=== PATIENT | male | born 1970 | race Caucasian/White ===

== ENCOUNTER 2016-12-26 06:12 | Emergency (ER) | payer MEDICAID ==
[~2016-12-26] VITALS: Ht 170.2 cm; Wt 101.6 kg
[2016-12-26 06:12] VITALS: BP_SYST 156
[2016-12-26] MEDS ORDERED: NACL 0.9% 1,000 ML IV ONE (06:20)
[2016-12-26] MEDS ORDERED: KETOROLAC TROMETHAMINE 30 MG VIAL IVP ONE (06:30)
[2016-12-26] MEDS ORDERED: ONDANSETRON HCL 4 MG/2 ML VIAL IVP ONE (06:30)
[2016-12-26 06:56] LABS: BASOPHILS # (AUTO) 0.1 K/uL (0.0-0.2); BASOPHILS % (AUTO) 0.8 % (0.0-2.0); EOSINOPHILS # (AUTO) 0.3 K/uL (0.0-0.4); EOSINOPHILS % (AUTO) 4.1 % (0.0-4.0); HEMATOCRIT 44.1 % (36-54); HEMOGLOBIN 14.3 g/dL (14.0-18.0); LYMPHOCYTES # (AUTO) 3.5 K/uL (1.0-5.5); LYMPHOCYTES % (AUTO) 49.6 % (20.5-51.5); MEAN CORPUSCULAR HEMOGLOBIN 25 pg (27-31); MEAN CORPUSCULAR HGB CONC 33 % (32-36); MEAN CORPUSCULAR VOLUME 78 fL (79.0-98.0); MONOCYTES # (AUTO) 0.6 K/uL (0.0-1.0); MONOCYTES % (AUTO) 8.5 % (1.7-9.3); NEUTROPHILS # (AUTO) 2.6 K/uL (1.8-7.7); PLATELET COUNT (AUTO) 340 K/uL (130-430); RED BLOOD CELL COUNT(AUTO) 5.69 MIL/uL (4.2-6.2); RED CELL DISTRIBUTION WIDTH 13.2 % (9.0-15.0); WHITE BLOOD COUNT (AUTO) 7.1 K/uL (4.8-10.8)
[2016-12-26 06:57] LABS: BILIRUBIN,URINE NEGATIVE (NEGATIVE); BLOOD, URINE 3+ (NEGATIVE); CLARITY/URINE CLEAR (CLEAR); COLOR,URINE YELLOW (YELLOW); GLUCOSE,URINE NEGATIVE (NEGATIVE); KETONES,URINE NEGATIVE (NEGATIVE); LEUKOCYTE ESTERASE ,URINE NEGATIVE (NEGATIVE); NITRITE, URINE NEGATIVE (NEGATIVE); PROTEIN URINE NEGATIVE (NEGATIVE); UROBILINOGEN,URINE 0.2 (0.2-1.0)
[2016-12-26 07:09] LABS: CALCIUM 8.7 mg/dL (8.4-11.0); CREATININE 1.12 mg/dL (0.55-1.30); POTASSIUM 4.1 mmol/L (3.5-5.1)
[2016-12-26 07:14] LABS: ALBUMIN 3.9 g/dL (3.4-4.8); TOTAL BILIRUBIN 0.2 mg/dL (0.0-1.0); TOTAL PROTEIN, SERUM 8.1 g/dL (6.4-8.3)
[2016-12-26 07:34] VITALS: BP_SYST 148
[2016-12-26 08:05] LABS: RBC,URINE 20-50 /HPF (0-3); WBC,URINE NONE SEEN /HPF (0-3)
[2016-12-26 08:06] LABS: BACTERIA,URINE FEW /HPF (None Seen); MUCUS,URINE None Seen /LPF (None Seen)
== END 2016-12-26 07:34 | disposition home or self-care (01) ==
LOC: SED 06:12
DX: N23 Unspecified renal colic (principal); I25.2 Old myocardial infarction; E78.00 Pure hypercholesterolemia, unspecified; E11.9 Type 2 diabetes mellitus without complications; Z95.9 Presence of cardiac and vascular implant and graft, unspecified; Z87.442 Personal history of urinary calculi
CPT/HCPCS: 36415; 74176; 80053; 81000; 85025; 96361; 96374; 96375; 99285; J1885; J2405; J7030

== ENCOUNTER 2018-01-18 02:21 | Emergency (ER) | payer MEDICAID ==
[~2018-01-18] VITALS: Ht 170.2 cm; Wt 101.6 kg
[2018-01-18 02:38] VITALS: BP_SYST 126
--- NOTE | 2018-01-18 02:38 | NUR ---
Patient AAOx4, ambulatory. Patient presents with pain to left forearm after he "slept on his arm wrong" this morning; patient states pain increases when attempting to rotate his wrist or when attempting to flex and extend his left fingers. Patient states sensation is present to left hand; cap refill is brisk and <2 seconds. No deformity noted. Patient denies any other complaints.
--- NOTE | 2018-01-18 02:38 | NUR ---
Patient to ER bed 6 to gown for evaluation. Side rails up.
--- NOTE | 2018-01-18 03:03 | NUR ---
ER Dr. Chiang at bedside examining patient.
[2018-01-18] MEDS ORDERED: KETOROLAC TROMETHAMINE 30 MG VIAL IM ONE (03:15)
--- NOTE | 2018-01-18 04:31 | NUR ---
Patient is calmly resting in ER bed, no signs of distress noted. Vital signs are within therapeutic range.
--- NOTE | 2018-01-18 04:50 | NUR ---
Wrist splint applied to left wrist. Strong pulse noted. Capillary refill <2 seconds. Patient has ability to move non-splinted digits. Has sensation present to affected site. Skin color within normal limits. Applied for pain management control.
[2018-01-18 05:00] VITALS: BP_SYST 124
--- NOTE | 2018-01-18 05:00 | NUR ---
Patient given written and verbal discharge instructions and verbalizes understanding. ER MD discussed with patient the results and treatment provided. Patient in stable condition. ID arm band removed. Rx of naprosyn given. Patient educated on pain management and to follow up with PMD. Pain Scale 0/10. Opportunity for questions provided and answered. Medication side effect fact sheet provided.
== END 2018-01-18 05:00 | disposition home or self-care (01) ==
LOC: SED 02:21
DX: S63.502A Unspecified sprain of left wrist, initial encounter (principal); E78.00 Pure hypercholesterolemia, unspecified; I25.2 Old myocardial infarction; E11.9 Type 2 diabetes mellitus without complications; X58.XXXA Exposure to other specified factors, initial encounter; Y93.89 Activity, other specified; Y92.89 Other specified places as the place of occurrence of the external cause; Y99.8 Other external cause status
CPT/HCPCS: 29125; 73110; 96372; 99284; J1885

== ENCOUNTER → 2019-07-09 | Emergency (ER) | payer MEDICAID ==
[~2019-07-09] VITALS: Ht 170.2 cm; Wt 101.6 kg
[2019-07-09 01:37] VITALS: BP_SYST 134
--- NOTE | 2019-07-09 01:45 | NUR ---
Pt to ER waiting room in stable condition. Pt ambulates with crutches he brought from home.
--- NOTE | 2019-07-09 02:54 | NUR ---
Pt to hallway bed 1
--- NOTE | 2019-07-09 03:46 | NUR ---
Pt left ER on crutches. Told him he was next, but he wanted to leave anyway. LWBS at this time.
== END | disposition still patient (30) ==
LOC: SED 00:38
DX: M25.562 Pain in left knee (principal); Z53.21 Procedure and treatment not carried out due to patient leaving prior to being seen by health care provider

== ENCOUNTER 2020-09-06 13:37 | Emergency (ER) | payer MEDICAID ==
[~2020-09-06] VITALS: Ht 172.7 cm; Wt 108.9 kg
[2020-09-06 13:42] VITALS: BP_SYST 137
[2020-09-06] MEDS ORDERED: LIDOCAINE 1%, 20 ML MDV 0 ML ONE (14:37)
[2020-09-06] MEDS ORDERED: DIPH-TET-PERTUS Vaccine 0.5 ML VIAL (ADACEL) I.M. ONE (14:45)
[2020-09-06] MEDS ORDERED: LIDOCAINE 2%, 20 ML MDV INJ ONE (14:45)
[2020-09-06] MEDS ORDERED: BACITRACIN 1 GM OINT TP ONE (14:45)
[2020-09-06] MEDS ORDERED: SULFAMETHOXAZOLE/TRIMETHOPR DS 1 TABLET PO ONE (16:30)
[2020-09-06] MEDS ORDERED: SULF1TAB48 PO (16:42)
[2020-09-06 17:27] VITALS: BP_SYST 137
== END 2020-09-06 17:29 | disposition home or self-care (01) ==
LOC: SED 14:04
DX: S61.012A Laceration without foreign body of left thumb without damage to nail, initial encounter (principal); E78.00 Pure hypercholesterolemia, unspecified; Z87.442 Personal history of urinary calculi; W25.XXXA Contact with sharp glass, initial encounter; Y93.89 Activity, other specified; Y92.89 Other specified places as the place of occurrence of the external cause; Y99.8 Other external cause status
CPT/HCPCS: 12002; 73140; 99283; J2001; 90715

== ENCOUNTER 2020-09-29 19:56 | Emergency (ER) | payer MEDICAID ==
[~2020-09-29] VITALS: Ht 170.2 cm; Wt 112.0 kg
[~2020-09-29 19:56] MED LIST: SULF1TAB48 PO
[2020-09-29 19:57] VITALS: BP_SYST 112
[2020-09-29] MEDS ORDERED: ASPIRIN 81 MG TAB.CHEW PO ONE (21:00)
[2020-09-29] MEDS ORDERED: NITROGLYCERIN LINGUAL 400 mCg/SPRAY SL PRN (21:00)
[2020-09-29 21:21] LABS: BASOPHILS % (AUTO) 0.6 % (0.0-2.0); EOSINOPHILS % (AUTO) 0.9 % (0.0-4.0); HEMATOCRIT 42.3 % (36-54); HEMOGLOBIN 14.1 g/dL (14.0-18.0); LYMPHOCYTES # (AUTO) 1.7 K/uL (1.0-5.5); LYMPHOCYTES % (AUTO) 29.2 % (20.5-51.5); MEAN CORPUSCULAR HEMOGLOBIN 26 pg (27-31); MEAN CORPUSCULAR HGB CONC 33 % (32-36); MEAN CORPUSCULAR VOLUME 78 fL (79.0-98.0); MONOCYTES # (AUTO) 0.6 K/uL (0.0-1.0); MONOCYTES % (AUTO) 10.7 % (1.7-9.3); NEUTROPHILS # (AUTO) 3.3 K/uL (1.8-7.7); NEUTROPHILS % (AUTO) 58.6 % (40.0-70.0); PLATELET COUNT (AUTO) 314 K/uL (130-430); RED BLOOD CELL COUNT(AUTO) 5.45 MIL/uL (4.2-6.2); WHITE BLOOD COUNT (AUTO) 5.7 K/uL (4.8-10.8)
[2020-09-29 21:29] LABS: CALCIUM 8.7 mg/dL (8.4-11.0); CREATININE 1.13 mg/dL (0.55-1.30); POTASSIUM 3.9 mmol/L (3.5-5.1)
[2020-09-29 21:33] LABS: PROTHROMBIN TIME 9.9 SECS (9.5-12.5)
[2020-09-29 21:35] LABS: ALBUMIN 3.7 g/dL (3.4-4.8)
[2020-09-29 22:07] LABS: TOTAL BILIRUBIN 0.6 mg/dL (0.0-1.0)
[2020-09-29 23:15] VITALS: BP_SYST 112
== END 2020-09-29 23:15 | disposition home or self-care (01) ==
LOC: SED 19:56
DX: R07.89 Other chest pain (principal); R00.0 Tachycardia, unspecified; E78.00 Pure hypercholesterolemia, unspecified; E78.5 Hyperlipidemia, unspecified
CPT/HCPCS: 36415; 71045; 80053; 83880; 84484; 85025; 85610-TC; 85730-TC; 93005; 99285

== ENCOUNTER 2021-03-02 20:17 | Emergency (ER) | payer MEDICAID ==
[~2021-03-02] VITALS: Ht 170.2 cm; Wt 108.9 kg
[2021-03-02 20:39] VITALS: BP_SYST 145
[2021-03-02] MEDS ORDERED: ATOR10TA68 PO (20:48)
--- NOTE | 2021-03-02 21:40 | NUR ---
Patient to ER bed 01 to gown for evaluation. Side rails up. Report given to PROSPER Carnes
--- NOTE | 2021-03-02 21:49 | NUR ---
PT CAME TO ER FOR COMPLAINTS OF ABDOMINAL DISTENTION AND PAIN. 12/19 PAIN. STATES HE ATE SOME FOOD 2 DAYS AGO AND HAS BEEN IN FEELING WEIRD EVRE SINCE. HIS ABDOMEN IS DISTENDED WELL. +N/V/D. HAS BEEN GOING ON FOR 2 DAYS NOW. CAME IN TO SEE WHAT IS THE CAUSE. AT BEDSIDE
--- NOTE | 2021-03-02 22:14 | NUR ---
JOHN Escalona at bedside examining patient.
[2021-03-02] MEDS ORDERED: ONDANSETRON HCL 4 MG/2 ML VIAL IVP ONE (22:30)
[2021-03-02] MEDS ORDERED: KETOROLAC TROMETHAMINE 30 MG VIAL IVP ONE (22:30)
[2021-03-02] MEDS ORDERED: NACL 0.9% 2,000 ML IV ONE (22:30)
[2021-03-02] MEDS ORDERED: MORPHINE 4 MG INJ. 4 MG/ML VIAL IVP ONE (22:30)
[2021-03-02] MEDS ORDERED: ACETAMINOPHEN 500 MG TABLET PO ONE (22:30)
--- NOTE | 2021-03-02 22:30 | NUR ---
# 20 gauge angiocath placed to LAC. Use of asceptic technique. Opsite placed over site. Blood return noted. Blood for lab drawn from site. Flushed with 10 cc of normal saline. No evidence of infiltration noted. Patient tolerated well.
[2021-03-02 22:47] LABS: HEMOGLOBIN 13.8 g/dL (14.0-18.0); MONOCYTES # (AUTO) 0.8 K/uL (0.0-1.0)
[2021-03-02 22:52] LABS: BASOPHILS % (AUTO) 0.2 % (0.0-2.0); EOSINOPHILS % (AUTO) 0.5 % (0.0-4.0); HEMATOCRIT 41.3 % (36-54); LYMPHOCYTES # (AUTO) 1.5 K/uL (1.0-5.5); LYMPHOCYTES % (AUTO) 36.8 % (20.5-51.5); MEAN CORPUSCULAR HEMOGLOBIN 26 pg (27-31); MEAN CORPUSCULAR HGB CONC 33 % (32-36); MEAN CORPUSCULAR VOLUME 78 fL (79.0-98.0); MONOCYTES % (AUTO) 19.4 % (1.7-9.3); NEUTROPHILS # (AUTO) 1.7 K/uL (1.8-7.7); NEUTROPHILS % (AUTO) 43.1 % (40.0-70.0); PLATELET COUNT (AUTO) 267 K/uL (130-430); RED CELL DISTRIBUTION WIDTH 15.5 % (9.0-15.0)
[2021-03-02 23:00] LABS: CALCIUM 8.6 mg/dL (8.4-11.0); CREATININE 1.36 mg/dL (0.55-1.30); POTASSIUM 3.1 mmol/L (3.5-5.1)
[2021-03-02 23:05] LABS: ALBUMIN 3.5 g/dL (3.4-4.8); TOTAL BILIRUBIN 0.3 mg/dL (0.0-1.0)
[2021-03-02] MEDS ORDERED: ONDA-8 TL (23:41)
[2021-03-02] MEDS ORDERED: HYDR-3921 PO (23:41)
[2021-03-02] MEDS ORDERED: PEPTO PO (23:41)
[2021-03-02] MEDS ORDERED: POTASSIUM CHLORIDE 20 MEQ/PKT PACKET PO ONE (23:45)
--- NOTE | 2021-03-03 00:30 | NUR ---
PT IS SLEEPING, NO DISTRESS
[2021-03-03] MEDS ORDERED: NACL 0.9% 1,000 ML IV ONE (00:45)
[2021-03-03 01:02] LABS: CALCIUM 7.5 mg/dL (8.4-11.0); CREATININE 1.21 mg/dL (0.55-1.30)
[2021-03-03 01:55] VITALS: BP_SYST 142
--- NOTE | 2021-03-03 01:58 | NUR ---
Patient given written and verbal discharge instructions and verbalizes understanding. ER MD discussed with patient the results and treatment provided. Patient in stable condition. ID arm band removed. IV catheter removed intact and dressing applied, no active bleeding. Rx of NORCO, ZOFRAN, PEPTO-BISMOL given. Patient educated on pain management and to follow up with PMD. Pain Scale 1/10. Opportunity for questions provided and answered. Medication side effect fact sheet provided.
== END 2021-03-03 01:55 | disposition home or self-care (01) ==
LOC: SED 20:17
DX: K52.89 Other specified noninfective gastroenteritis and colitis (principal); E86.1 Hypovolemia; E87.6 Hypokalemia; E78.00 Pure hypercholesterolemia, unspecified; Z79.899 Other long term (current) drug therapy
CPT/HCPCS: 36415; 74176; 76376; 80048; 80053; 82272; 83605; 83690; 85025; 87040; 87045; 87046 ×2; 87177; 89055; 96361 ×2; 96374; 99284; J2405; J7030 ×2; J1885; J2270